=== PATIENT | female | born 1970 | race Caucasian/White ===

== ENCOUNTER 2017-02-24 09:29 | Emergency (ER) | payer OTHER ==
[2017-02-24 09:11] LABS: BASOPHILS 0.4 %; BASOPHILS ABSOLUTE 0.03 10/3/uL (0.0-0.16); EOSINOPHILS 2.4 %; EOSINOPHILS ABSOLUTE 0.16 10/3/uL (0.0-0.53); ER CBC TAT 0 Hrs 10 Mins; HEMATOCRIT 32.4 % (36.0-48.0); HEMOGLOBIN 11.2 g/dL (12.0-16.0); IMMATURE GRANULOCYTES 0.1 %; IMMATURE GRANULOCYTES ABSOLUTE 0.01 10/3/uL (0.0-0.11); LYMPHOCYTES 28.4 %; LYMPHOCYTES ABSOLUTE 1.92 10/3/uL (0.67-4.30); MANUAL DIFF NO %; MEAN CORPUS HGB CONC 34.6 g/dL (32.0-36.0); MEAN CORPUSCULAR HEMOGLOB 30.8 pg (26.0-34.0); MONOCYTES 11.7 %; MONOCYTES ABSOLUTE 0.79 10/3/uL (0.21-1.20); NEUTROPHILS ABSOLUTE 3.84 10/3/uL (2.02-8.40); PLATELET COUNT 266 10/3/uL (150-400); RBC DISTRIBUTION WIDTH 13.3 % (12.0-16.0); RED CELL COUNT 3.64 10/6/uL (4.0-5.6); WHITE BLOOD CELLS 6.8 10/3/uL (4.5-10.5)
[2017-02-24 09:26] LABS: ALBUMIN 3.6 G/DL (3.5-5.0); ALKALINE PHOSPHATASE 151 U/L (45-117); CALCIUM, SERUM 9.2 MG/DL (8.5-10.4); CHLORIDE, SERUM 110 MMOL/L (96-112); CO2 (CARBON DIOXIDE) 27 MMOL/L (24-34); CREATININE 1.31 MG/DL (0.55-1.02); GFR AFRICAN AMERICAN 55 ML/MIN (>=60); GFR NON AFRICAN AMERICAN 48 ML/MIN (>=60); GLOBULIN 3.5 G/DL (2.5-4.1); POTASSIUM, SERUM 3.4 MMOL/L (3.5-5.3); SGOT(AST) 14 U/L (5-40); SGPT(ALT) 19 U/L (5-65); SODIUM, SERUM 145 MMOL/L (135-148); TOTAL BILIRUBIN 0.3 MG/DL (0-1.2); TOTAL PROTEIN 7.1 G/DL (6.0-8.5)
[2017-02-24 09:28] LABS: BUN (BLOOD UREA NITROGEN) 11 MG/DL (6-23); GLUCOSE, SERUM 31 MG/DL (60-99)
[~2017-02-24 09:29] MED LIST: ASABAYER PO; CLARIT10 PO; FLOVENT220 INH; FLUCON150 PO; HUMALOG SC; LANTUS SC; LIPITOR40 PO; LORTAB10 PO; NORCO1 TA1 PO; NOVOLOG SC; NYSTOP100000 MG TOP; PERCOCET1 TA4 PO; PRIN20 PO; PROVHFA INH; VISINE-A EYE AL15 ML OPH; XANAX1 MG PO; ZOFRAN ODT4 MG PO; [UNRECOGNIZED DRUG - OTHER]
[2017-02-24 09:47] LABS: INFLUENZA A SCREEN NEGATIVE (NEGATIVE); INFLUENZA B SCREEN NEGATIVE (NEGATIVE)
[2017-05-12] MEDS ORDERED: ZOFRAN ODT4 MG PO (12:20)
[2017-05-12] MEDS ORDERED: PRIN20 PO (12:24)
[2017-05-12] MEDS ORDERED: LIPITOR40 PO (12:24)
[2017-05-12] MEDS ORDERED: HUMALOG SC (12:24)
[2017-05-12] MEDS ORDERED: NORCO1 TA2 PO (12:25)
[2017-05-12] MEDS ORDERED: ASABAYER PO (12:25)
[2017-05-12] MEDS ORDERED: FLEX PO (12:25)
[2017-05-12] MEDS ORDERED: LANTUS SC (12:25)
[2017-05-12] MEDS ORDERED: ALBUTEROL0.083 % INH (12:26)
[2017-05-12] MEDS ORDERED: PROVHFA INH (12:26)
[2017-05-15] MEDS ORDERED: KEPPRA500 PO (19:41)
[2017-05-15] MEDS ORDERED: VOLTAREN1 % TOP (19:42)
[2017-06-06] MEDS ORDERED: PROVHFA INH (18:25)
[2017-06-06] MEDS ORDERED: ALBUTEROL0.083 % INH (18:25)
[2017-06-06] MEDS ORDERED: LIPITOR40 PO (18:27)
[2017-06-06] MEDS ORDERED: FLEX PO (18:27)
[2017-06-06] MEDS ORDERED: ASAB PO (18:28)
[2017-06-06] MEDS ORDERED: NORCO1 TA2 PO (18:28)
[2017-06-06] MEDS ORDERED: VOLTAREN1 % TOP (18:28)
[2017-06-06] MEDS ORDERED: HUMALOG SC ×2 (18:29→18:30)
[2017-06-06] MEDS ORDERED: LANTUS SC (18:29)
[2017-06-06] MEDS ORDERED: ZOFRAN ODT4 MG PO (18:30)
[2017-06-06] MEDS ORDERED: COZAAR100 MG PO (18:41)
[2017-06-06] MEDS ORDERED: ZANTAC 150 PO (18:41)
[2017-06-06] MEDS ORDERED: FLONASE NAS (18:42)
[2017-06-06] MEDS ORDERED: REM15 PO (18:43)
[2017-06-06] MEDS ORDERED: CORTOTSOL OT (18:43)
[2017-06-06] MEDS ORDERED: ZESTRIL20 MG PO (18:43)
[2017-06-12] MEDS ORDERED: KLONO5 PO (16:18)
[2017-06-16] MEDS ORDERED: LEVAQUIN750 MG PO (14:19)
[2017-06-16] MEDS ORDERED: NORV10 PO (14:20)
[2017-06-16] MEDS ORDERED: REG5 PO (14:20)
[2017-06-16] MEDS ORDERED: PROZAC PO (14:21)
[2017-06-16] MEDS ORDERED: REFRESH OPH (14:23)
== END 2017-02-24 11:19 | disposition home or self-care (01) ==
LOC: ER 09:29
PROVIDERS: Nurse Practitioner Family
DX: J45.909 Unspecified asthma, uncomplicated (principal); I12.9 Hypertensive chronic kidney disease with stage 1 through stage 4 chronic kidney disease, or unspecified chronic kidney disease; N18.9 Chronic kidney disease, unspecified; K21.9 Gastro-esophageal reflux disease without esophagitis; E11.9 Type 2 diabetes mellitus without complications; M19.90 Unspecified osteoarthritis, unspecified site; Z87.01 Personal history of pneumonia (recurrent); Z86.73 Personal history of transient ischemic attack (TIA), and cerebral infarction without residual deficits; Z88.0 Allergy status to penicillin; Z88.5 Allergy status to narcotic agent; Z79.4 Long term (current) use of insulin; Z79.82 Long term (current) use of aspirin
CPT/HCPCS: 71010; 80053; 82962; 83880; 85025; 87040; 87804; 93005; 96374; 96375; 99285

== ENCOUNTER → 2017-07-11 | Emergency (ER) | payer OTHER ==
[~2017-07-11] MED LIST changes: +ALBUTEROL0.083 % INH; +ASAB PO; +CORTOTSOL OT; +COZAAR100 MG PO; +FLEX PO; +FLONASE NAS; +KEPPRA500 PO; +KLONO5 PO; +LEVAQUIN750 MG PO; +NORCO1 TA2 PO; +NORV10 PO; +PROZAC PO; +REFRESH OPH; +REG5 PO; +REM15 PO; +VOLTAREN1 % TOP; +ZANTAC 150 PO; +ZESTRIL20 MG PO
[2017-07-11 09:57] LABS: WBC (NOT ORDERED) (RFLEX) 0 (0-5)
[2017-07-11 10:02] LABS: BASOPHILS 0.1 %; BASOPHILS ABSOLUTE 0.01 10/3/uL (0.0-0.16); EOSINOPHILS 1.5 %; EOSINOPHILS ABSOLUTE 0.13 10/3/uL (0.0-0.53); HEMATOCRIT 32.9 % (36.0-48.0); HEMOGLOBIN 10.9 g/dL (12.0-16.0); IMMATURE GRANULOCYTES 0.1 %; IMMATURE GRANULOCYTES ABSOLUTE 0.01 10/3/uL (0.0-0.11); LYMPHOCYTES 16.1 %; LYMPHOCYTES ABSOLUTE 1.38 10/3/uL (0.67-4.30); MANUAL DIFF NO %; MEAN CORPUS HGB CONC 33.1 g/dL (32.0-36.0); MEAN CORPUSCULAR HEMOGLOB 29.7 pg (26.0-34.0); MEAN CORPUSCULAR VOLUME 89.6 fL (80-100); MEAN PLATELET VOLUME 10.3 fL (9.2-13.0); MONOCYTES 7.5 %; MONOCYTES ABSOLUTE 0.64 10/3/uL (0.21-1.20); NEUTROPHILS 74.7 %; NEUTROPHILS ABSOLUTE 6.39 10/3/uL (2.02-8.40); PLATELET COUNT 335 10/3/uL (150-400); RBC DISTRIBUTION WIDTH 12.8 % (12.0-16.0); RED CELL COUNT 3.67 10/6/uL (4.0-5.6); WHITE BLOOD CELLS 8.6 10/3/uL (4.5-10.5)
[2017-07-11 10:05] LABS: ASCORBIC ACID (UR NOT ORDER) NEG (NEG); BILIRUBIN, URINE NEGATIVE (NEG); ER URINALYSIS TAT 0 Hrs 08 Mins; KETONE, URINE NEGATIVE (NEG); LEUKOCYTE ESTERASE(NOT OR NEG (NEG); NITRITE (URINE) NEG (NEG)
[2017-07-11 10:16] LABS: ALBUMIN 3.8 G/DL (3.5-5.0); BUN (BLOOD UREA NITROGEN) 36 MG/DL (6-23); CALCIUM, SERUM 9.4 MG/DL (8.5-10.4); CHLORIDE, SERUM 102 MMOL/L (96-112); CO2 (CARBON DIOXIDE) 24 MMOL/L (24-34); CREATININE 1.71 MG/DL (0.55-1.02); GFR AFRICAN AMERICAN 40 ML/MIN (>=60); GFR NON AFRICAN AMERICAN 35 ML/MIN (>=60); GLOBULIN 3.9 G/DL (2.5-4.1); POTASSIUM, SERUM 5.2 MMOL/L (3.5-5.3); SGOT(AST) 9 U/L (5-40); SGPT(ALT) 15 U/L (5-65); SODIUM, SERUM 134 MMOL/L (135-148); TOTAL PROTEIN 7.7 G/DL (6.0-8.5)
[2017-07-11 10:17] LABS: ALKALINE PHOSPHATASE 175 U/L (45-117); GLUCOSE, SERUM 526 MG/DL (60-99); TOTAL BILIRUBIN 0.8 MG/DL (0-1.2)
== END | disposition home or self-care (01) ==
LOC: ER 09:03
PROVIDERS: Emergency Medicine
PROC: 0T9B70Z Drainage of Bladder with Drainage Device, Via Natural or Artificial Opening (ICD-10-PCS; principal; 2017-07-11)
DX: S82.65XA Nondisplaced fracture of lateral malleolus of left fibula, initial encounter for closed fracture (principal); R53.1 Weakness; R33.9 Retention of urine, unspecified; N18.9 Chronic kidney disease, unspecified; R73.9 Hyperglycemia, unspecified; Z86.718 Personal history of other venous thrombosis and embolism; Z88.0 Allergy status to penicillin; Z88.5 Allergy status to narcotic agent; Z88.1 Allergy status to other antibiotic agents; Z88.8 Allergy status to other drugs, medicaments and biological substances; Z79.4 Long term (current) use of insulin; Z79.82 Long term (current) use of aspirin; Z79.899 Other long term (current) drug therapy; W19.XXXA Unspecified fall, initial encounter
CPT/HCPCS: 71010; 73610-LT; 73630-LT; 80053; 81001; 82962; 83880; 85025; 96374; 96375; 99284; A9270-GY; J1170; J2405